=== PATIENT | male | born 1990 | race African-American/Black ===

== ENCOUNTER 2022-08-06 20:00 | Emergency (ER) | payer OTHER, SELFPAY ==
--- NOTE | ~2022-08-06 | XR_ITS ---
EXAMINATION: XR CHEST CLINICAL INFORMATION: Left-sided chest pain COMPARISON: None TECHNIQUE: 2 views of the chest were obtained. FINDINGS: The heart and pulmonary vessels appear normal. No infiltrates, effusions or lung masses are seen is some mild sclerosis seen along the left lateral seventh rib which may be secondary to an old fracture no acute osseous abnormality is seen. XR/XR chest 2V IMPRESSION: No acute intrathoracic disease.
[2022-08-06 20:03] VITALS: BP 127/94; PULSE 133; RESP 20; TEMP 37; O2SAT 96; BMI 28.3
--- NOTE | 2022-08-06 20:06 | ED_ITS ---
HPI - Chest Pain General Chief Complaint: Chest Pain <THAI York - Last Filed: 08/06/22 20:12> Stated Complaint: chest pain <THAI Yokr - Last Filed: 08/06/22 20:12> Time Seen by Provider: 08/06/22 20:58 <THAI York - Last Filed: 08/06/22 20:12> Source: patient <Deidra Mcfarlane MD - Last Filed: 08/06/22 22:48> Mode of arrival: ambulatory <Deidra Mcfarlane MD - Last Filed: 08/06/22 22:48> Limitations: no limitations <Deidra Mcfarlane MD - Last Filed: 08/06/22 22:48> History of Present Illness HPI narrative: A 32-year-old male history of alcohol use disorder walk-in today for evaluation of left-sided neck pain radiates down to the left arm and the left side of the chest pain started few months ago after falling down, no associated symptoms no nausea, no vomiting, no SOB, no feeling palpitation, no dizziness. Pain is worse with neck movement or left arm movement, pain is not exertional. Admitted to drinking alcohol today. <Deidra Mcfarlane MD - Last Filed: 08/06/22 22:48> Related Data Allergies/Adverse Reactions: Allergies Allergy/AdvReac Type Severity Reaction Status Date / Time No Known Allergies Allergy Verified 08/06/22 20:09 <THAI York - Last Filed: 08/06/22 20:12> Review of Systems Review of Systems: All other systems are reviewed and are negative Constitutional: Reports as per HPI and Reports no additional constitutional complaints Eyes: Reports as per HPI and Reports no additional eye complaints Reports system reviewed and no additional complaints, except as documented Cardiovascular: Reports as per HPI and Reports no additional cardiovascular complaints Respiratory: Reports as per HPI and Reports no additional respiratory complaints Gastrointestinal: Reports as per HPI and Reports no additional gastrointestinal complaints Genitourinary: Reports no additional female genitourinary complaints Musculoskeletal: Reports no additional musculoskeletal complaints Skin/Breast: Reports system reviewed and no additional complaints, except as docu Psychiatric: Reports no additional psychiatric complaints Endocrine: Reports no additional endocrine complaints Hematologic/Lymphatic: Reports no additional hematologic/lymphatic complaints Allergic/Immunologic: Reports no additional allergic/immunologic complaints Reports system reviewed and no additional complaints, except as documented and Reports Abnormal speech present <Deidra Mcfarlane MD - Last Filed: 08/06/22 22:48> FORMERLY [facility] Social History Social History: Social History Advance Directives: No Advance Directives Information Provided: No <THAI York - Last Filed: 08/06/22 20:12> Physical Exam Vital Signs: Vital Signs: Last Vital Signs Temp 98.6 F 08/06/22 20:03 Pulse 133 H 08/06/22 20:03 Resp 20 08/06/22 20:03 BP 127/94 H 08/06/22 20:03 Pulse Ox 96 08/06/22 20:03 O2 Del Method 08/06/22 20:03 BMI result Body Mass Index 28.3 <THAI York - Last Filed: 08/06/22 20:12> Vital Signs: Last Vital Signs Temp 98.6 F 08/06/22 20:03 Pulse 133 H 08/06/22 20:03 Resp 20 08/06/22 20:03 BP 127/94 H 08/06/22 20:03 Pulse Ox 96 08/06/22 20:03 O2 Del Method 08/06/22 20:03 BMI result Body Mass Index 28.3 Vital signs have been reviewed as appeared to be correct. Blood pressure normal. Heart rate elevated. Respiration rate normal. Temperature normal. Oxygen saturation normal. <Deidra Mcfarlane MD - Last Filed: 08/06/22 22:48> Appearance: Alert. Oriented X3. No acute distress. Head: Normal external exam. Normocephalic. Atraumatic. No Frank signs noted. No raccoon eyes noted Eyes: PERRLA. EOMI. Conjunctiva and sclera normal. Eyelids normal. ENT: TM's Normal. Pharynx normal. Uvula midline. Moist mucous membranes. No trismus noted. No drooling noted. No muffled voice noted. Neck: Normal inspection. Neck supple. FROM. No adenopathy. Thyroid Normal. No meningeal signs. No neck mass noted. Increases neck pain when they turned to the right side with increased radiation to the left arm and left chest area, pain also is worsening by lifting left arm above his head. CVS: Normal heart rate and rhythm. Heart sound normal. No murmurs noted. Pulses normal throughout. Respiratory: No respiratory distress. Painless inspiration. Breath sounds normal. No wheezes/rales/rhonchi noted. Chest nontender. No accessory muscle usage noted or decreased air movement noted. Abdomen: Soft and nontender. Bowel sounds normal in all 4 quadrants. No distention noted. No organomegaly noted. No visible injury noted. Back: No CVA tenderness. Full range of motion noted. Skin: Skin warm and dry. Normal skin color. Normal skin turgor. No rashes/lesions/lacerations noted. Extremities: No lower extremity edema. Extremities exhibit normal range of motion. Extremities nontender. Neuro: Oriented X 3. Cranial nerve exam: II-XII are grossly intact No motor deficit. No sensory deficit. Reflexes normal. <Deidra Mcfarlane MD - Last Filed: 08/06/22 22:48> Course Course Course Narrative: RME - 32 yo male with no medical problems presents to the ER with 2 months of left sided chest pains, left sided shoulder pains and left sided neck pains. He reports pains started after a fall. Poor historian. Admits to ETOH use today. HR 130-140 in triage. No SOB, no leg swelling, nausea or diaphoresis. BP stable. Will get EKG, labs, CXR. <THAI York - Last Filed: 08/06/22 20:12> Reevaluation(s) Reevaluation #1: 32-year-old male came in for few months symptoms of left neck/left chest wall pain, physical exam is consistent with left cervical radiculopathy. No neural compromise on the patient's exam. Patient is tachycardia secondary to alcohol intoxication and slight dehydration improved after given IV 1 L of normal saline. <Deidra Mcfarlane MD - Last Filed: 08/06/22 22:48> Time: 21:45 <Deidra Mcfarlane MD - Last Filed: 08/06/22 22:48> Reevaluation #2: Went back to the room patient eloped before a full medical evaluation. <Deidra Mcfarlane MD - Last Filed: 08/06/22 22:48> Time: 22:47 <Deidra Mcfarlane MD - Last Filed: 08/06/22 22:48> Medications Administered Discontinued Medications Generic Name Dose Route Start Last Admin Trade Name Freq PRN Reason Stop Dose Admin Sodium Chloride 1,000 mls @ 999 mls/hr 08/06/22 21:30 08/06/22 21:56 Ns IV 08/06/22 22:30 Not Given .Q1H1M ONE <THAI York - Last Filed: 08/06/22 20:12> Medications Administered Discontinued Medications Generic Name Dose Route Start Last Admin Trade Name Freq PRN Reason Stop Dose Admin Sodium Chloride 1,000 mls @ 999 mls/hr 08/06/22 21:30 08/06/22 21:56 Ns IV 08/06/22 22:30 Not Given .Q1H1M ONE <Deidra Mcfarlane MD - Last Filed: 08/06/22 22:48> Medical Decision Making Differential Diagnosis Differential Diagnoses: The differential diagnosis associated with the presentation includes (ACS, pneumonia, pneumothorax, cervical radiculopathy, myofascial cervical pain, alcohol intoxication.) <Deidra Mcfarlane MD - Last Filed: 08/06/22 22:48> Lab Data MDM Lab Attestation statement: I reviewed the patient's lab results. <Deidra Mcfarlane MD - Last Filed: 08/06/22 22:48> Result Diagrams: 08/06/22 20:31 08/06/22 20:31 <THAI York - Last Filed: 08/06/22 20:12> Labs: Lab Results 08/06/22 08/06/22 08/06/22 Range/Units 20:31 20:31 20:31 WBC 6.6 (4.8-10.8) X10*3/uL RBC 5.50 (4.60-5.80) X10*6/uL Hgb 17.1 (14.0-18.0) g/dl Hct 51.6 (42.0-52.0) % MCV 93.8 (80.0-98.0) fL MCH 31.1 (27.0-33.0) pg MCHC 33.1 (31.0-36.0) g/dl RDW 13.2 (11.0-16.0) % Plt Count 308 (160-400) X10*3/uL MPV 8.8 L (9.4-12.4) fL Immature Gran % (Auto) 0.3 (0.0-0.4) % Neut % (Auto) 55.0 (45-73) % Lymph % (Auto) 38.2 (20-40) % [place] % (Auto) 4.2 (2-11) % Eos % (Auto) 1.5 (0-4) % Baso % (Auto) 0.8 (0-2) % Lymph # (Auto) 2.5 (1.2-4.9) X10*3/uL [place] # (Auto) 0.3 (0.1-1.2) X10*3/uL Eos # (Auto) 0.1 (0.0-0.4) X10*3/uL Baso # (Auto) 0.1 (0.0-0.2) X10*3/uL Abs Immat Gran (auto) 0.02 (0.00-0.03) X10*3/uL Absolute Neuts (auto) 3.6 (2.0-8.3) x10*3/uL Absolute Nucleated RBC 0.000 (0.0-0.012) X10*3/uL Nucleated RBC % (auto) 0.0 (0.0-0.2) /100WBC Sodium 148 H (135-145) mmol/L Potassium 3.9 (3.3-5.1) mmol/L Chloride 104 (96-108) mmol/L Carbon Dioxide 27 (22-29) mmol/L Anion Gap 21 H (12-20) BUN 7 L (9-16) mg/dL Creatinine 0.93 (0.5-1.4) mg/dL Estim Creat Clear Calc 145.4 Estimated GFR > 60 Random Glucose 129 H (60-115) mg/dL Calcium 9.6 (8.4-10.2) mg/dL Magnesium 1.7 (1.6-2.6) mg/dL Total Bilirubin 0.4 (0.0-1.0) mg/dL Direct Bilirubin < 0.2 (0.0-0.5) mg/dL AST 55 H (5-37) U/L ALT 49 H (0-40) U/L Alkaline Phosphatase 84 (39-117) U/L Troponin I High Sens 16.3 (<3.5-35.0) ng/L Total Protein 8.7 H (6.5-8.0) g/dL Albumin 5.2 H (3.5-5.0) g/dL Ethyl Alcohol mg/dL 08/06/22 08/06/22 Range/Units 20:31 21:43 WBC (4.8-10.8) X10*3/uL RBC (4.60-5.80) X10*6/uL Hgb (14.0-18.0) g/dl Hct (42.0-52.0) % MCV (80.0-98.0) fL MCH (27.0-33.0) pg MCHC (31.0-36.0) g/dl RDW (11.0-16.0) % Plt Count (160-400) X10*3/uL MPV (9.4-12.4) fL Immature Gran % (Auto) (0.0-0.4) % Neut % (Auto) (45-73) % Lymph % (Auto) (20-40) % [place] % (Auto) (2-11) % Eos % (Auto) (0-4) % Baso % (Auto) (0-2) % Lymph # (Auto) (1.2-4.9) X10*3/uL [place] # (Auto) (0.1-1.2) X10*3/uL Eos # (Auto) (0.0-0.4) X10*3/uL Baso # (Auto) (0.0-0.2) X10*3/uL Abs Immat Gran (auto) (0.00-0.03) X10*3/uL Absolute Neuts (auto) (2.0-8.3) x10*3/uL Absolute Nucleated RBC (0.0-0.012) X10*3/uL Nucleated RBC % (auto) (0.0-0.2) /100WBC Sodium (135-145) mmol/L Potassium (3.3-5.1) mmol/L Chloride (96-108) mmol/L Carbon Dioxide (22-29) mmol/L Anion Gap (12-20) BUN (9-16) mg/dL Creatinine (0.5-1.4) mg/dL Estim Creat Clear Calc Estimated GFR Random Glucose (60-115) mg/dL Calcium (8.4-10.2) mg/dL Magnesium (1.6-2.6) mg/dL Total Bilirubin (0.0-1.0) mg/dL Direct Bilirubin (0.0-0.5) mg/dL AST (5-37) U/L ALT (0-40) U/L Alkaline Phosphatase (39-117) U/L Troponin I High Sens 17.4 (<3.5-35.0) ng/L Total Protein (6.5-8.0) g/dL Albumin (3.5-5.0) g/dL Ethyl Alcohol 397 H* mg/dL <THAI York - Last Filed: 08/06/22 20:12> Lab Results 08/06/22 08/06/22 08/06/22 Range/Units 20:31 20:31 20:31 WBC 6.6 (4.8-10.8) X10*3/uL RBC 5.50 (4.60-5.80) X10*6/uL Hgb 17.1 (14.0-18.0) g/dl Hct 51.6 (42.0-52.0) % MCV 93.8 (80.0-98.0) fL MCH 31.1 (27.0-33.0) pg MCHC 33.1 (31.0-36.0) g/dl RDW 13.2 (11.0-16.0) % Plt Count 308 (160-400) X10*3/uL MPV 8.8 L (9.4-12.4) fL Immature Gran % (Auto) 0.3 (0.0-0.4) % Neut % (Auto) 55.0 (45-73) % Lymph % (Auto) 38.2 (20-40) % [place] % (Auto) 4.2 (2-11) % Eos % (Auto) 1.5 (0-4) % Baso % (Auto) 0.8 (0-2) % Lymph # (Auto) 2.5 (1.2-4.9) X10*3/uL [place] # (Auto) 0.3 (0.1-1.2) X10*3/uL Eos # (Auto) 0.1 (0.0-0.4) X10*3/uL Baso # (Auto) 0.1 (0.0-0.2) X10*3/uL Abs Immat Gran (auto) 0.02 (0.00-0.03) X10*3/uL Absolute Neuts (auto) 3.6 (2.0-8.3) x10*3/uL Absolute Nucleated RBC 0.000 (0.0-0.012) X10*3/uL Nucleated RBC % (auto) 0.0 (0.0-0.2) /100WBC Sodium 148 H (135-145) mmol/L Potassium 3.9 (3.3-5.1) mmol/L Chloride 104 (96-108) mmol/L Carbon Dioxide 27 (22-29) mmol/L Anion Gap 21 H (12-20) BUN 7 L (9-16) mg/dL Creatinine 0.93 (0.5-1.4) mg/dL Estim Creat Clear Calc 145.4 Estimated GFR > 60 Random Glucose 129 H (60-115) mg/dL Calcium 9.6 (8.4-10.2) mg/dL Magnesium 1.7 (1.6-2.6) mg/dL Total Bilirubin 0.4 (0.0-1.0) mg/dL Direct Bilirubin < 0.2 (0.0-0.5) mg/dL AST 55 H (5-37) U/L ALT 49 H (0-40) U/L Alkaline Phosphatase 84 (39-117) U/L Troponin I High Sens 16.3 (<3.5-35.0) ng/L Total Protein 8.7 H (6.5-8.0) g/dL Albumin 5.2 H (3.5-5.0) g/dL Ethyl Alcohol mg/dL 08/06/22 08/06/22 Range/Units 20:31 21:43 WBC (4.8-10.8) X10*3/uL RBC (4.60-5.80) X10*6/uL Hgb (14.0-18.0) g/dl Hct (42.0-52.0) % MCV (80.0-98.0) fL MCH (27.0-33.0) pg MCHC (31.0-36.0) g/dl RDW (11.0-16.0) % Plt Count (160-400) X10*3/uL MPV (9.4-12.4) fL Immature Gran % (Auto) (0.0-0.4) % Neut % (Auto) (45-73) % Lymph % (Auto) (20-40) % [place] % (Auto) (2-11) % Eos % (Auto) (0-4) % Baso % (Auto) (0-2) % Lymph # (Auto) (1.2-4.9) X10*3/uL [place] # (Auto) (0.1-1.2) X10*3/uL Eos # (Auto) (0.0-0.4) X10*3/uL Baso # (Auto) (0.0-0.2) X10*3/uL Abs Immat Gran (auto) (0.00-0.03) X10*3/uL Absolute Neuts (auto) (2.0-8.3) x10*3/uL Absolute Nucleated RBC (0.0-0.012) X10*3/uL Nucleated RBC % (auto) (0.0-0.2) /100WBC Sodium (135-145) mmol/L Potassium (3.3-5.1) mmol/L Chloride (96-108) mmol/L Carbon Dioxide (22-29) mmol/L Anion Gap (12-20) BUN (9-16) mg/dL Creatinine (0.5-1.4) mg/dL Estim Creat Clear Calc Estimated GFR Random Glucose (60-115) mg/dL Calcium (8.4-10.2) mg/dL Magnesium (1.6-2.6) mg/dL Total Bilirubin (0.0-1.0) mg/dL Direct Bilirubin (0.0-0.5) mg/dL AST (5-37) U/L ALT (0-40) U/L Alkaline Phosphatase (39-117) U/L Troponin I High Sens 17.4 (<3.5-35.0) ng/L Total Protein (6.5-8.0) g/dL Albumin (3.5-5.0) g/dL Ethyl Alcohol 397 H* mg/dL <Deidra Mcfarlane MD - Last Filed: 08/06/22 22:48> Independent Interpretation I performed an independent interpretation of an: EKG (Sinus tachycardia at 123 beats per minutes, left axis deviation, normal intervals, no ST-T changes.) and Plain X-Ray (Chest: No acute intrathoracic pathology.) <Deidra Mcfarlane MD - Last Filed: 08/06/22 22:48> Discharge Plan Discharge Clinical Impression: Cervical radiculopathy, Alcohol intoxication, Atypical chest pain <THAI York - Last Filed: 08/06/22 20:12> Patient Disposition: Elopement <THAI York - Last Filed: 08/06/22 20:12>
--- NOTE | 2022-08-06 20:08 | ECG_ITS ---
Test Reason : CHEST PAIN Blood Pressure : / mmHG Vent. Rate : 123 BPM Atrial Rate : 123 BPM P-R Int : 120 ms QRS Dur : 082 ms QT Int : 296 ms P-R-T Axes : -19 -24 045 degrees QTc Int : 423 ms Sinus tachycardia cannot exclude old Inferior infarct , age undetermined Abnormal ECG No previous ECGs available Referred By: Rosy Andujar Electronically Signed By:ADOLFO SEVILLA
[2022-08-06 20:39] LABS: MANUAL DIFF FLAG NO
[2022-08-06 20:40] LABS: Basophils Absolute Auto 0.1 X10*3/uL (0.0-0.2); Basophils Percent Auto 0.8 % (0-2); Eosinophils Absolute Auto 0.1 X10*3/uL (0.0-0.4); Eosinophils Percent Auto 1.5 % (0-4); Hematocrit 51.6 % (42.0-52.0); Hemoglobin 17.1 g/dl (14.0-18.0); Imm Gran Abs Auto 0.02 X10*3/uL (0.00-0.03); Imm Gran Pct Auto 0.3 % (0.0-0.4); Lymphocytes Absolute Auto 2.5 X10*3/uL (1.2-4.9); Lymphocytes Percent Auto 38.2 % (20-40); Mean Corpuscular HGB Conc 33.1 g/dl (31.0-36.0); Mean Corpuscular Hemoglobin 31.1 pg (27.0-33.0); Mean Corpuscular Volume 93.8 fL (80.0-98.0); Mean Platelet Volume 8.8 fL (9.4-12.4); Monocytes Absolute Auto 0.3 X10*3/uL (0.1-1.2); Monocytes Percent Auto 4.2 % (2-11); Neutrophils Absolute Auto 3.6 x10*3/uL (2.0-8.3); Platelet Count 308 X10*3/uL (160-400); Red Cell Distribution Width 13.2 % (11.0-16.0); White Blood Count 6.6 X10*3/uL (4.8-10.8)
[2022-08-06 20:52] LABS: Ethanol 397 mg/dL
[2022-08-06 20:58] LABS: Alanine Aminotransferase 49 U/L (0-40); Albumin Level 5.2 g/dL (3.5-5.0); Alkaline Phosphatase 84 U/L (39-117); Anion Gap 21 (12-20); Aspartate Amino Transferase 55 U/L (5-37); Bilirubin Direct < 0.2 mg/dL (0.0-0.5); Bilirubin Total 0.4 mg/dL (0.0-1.0); Blood Urea Nitrogen 7 mg/dL (9-16); Calcium 9.6 mg/dL (8.4-10.2); Carbon Dioxide 27 mmol/L (22-29); Chloride 104 mmol/L (96-108); Creatinine Clr Calc Pharmacy 145.4; Estimated Glomerular Filt Rate > 60; Glucose Random 129 mg/dL (60-115); Magnesium 1.7 mg/dL (1.6-2.6); Potassium 3.9 mmol/L (3.3-5.1); Sodium 148 mmol/L (135-145); Total Protein 8.7 g/dL (6.5-8.0)
[2022-08-06 21:02] LABS: Troponin-I High Sensitivity 16.3 ng/L (<3.5-35.0)
[2022-08-06 22:08] LABS: Troponin-I High Sensitivity 17.4 ng/L (<3.5-35.0)
--- NOTE | 2022-08-06 22:55 | PC.NURSE ---
The pt was resting in his room, alert and oriented x 3, obviously drunk but otherwise calm and cooperative. He has been ambulating throughout his room independently and with steady gait. Pt was aware that he was waiting for one blood test result (Troponin) prior to being discharged. The pt was informed that MD Valente would prefer to place an IV and give him IVFs, but the pt refused saying no way bro. I already been stuck once. that's it . Ambrosio notified, aware. Pt was noted by staff ambulating out of the department independently with steady gait - prior to being discharged (elopement). Again, his gait was very steady. pt was encouraged to remain in the department but he continued to exit the department. MD Cara aware. Pt has eloped.
== END 2022-08-06 23:05 | disposition left against medical advice (07) ==
PROVIDERS: Physician Assistant; Emergency Provider Emergency Medicine
DX: M54.12 Radiculopathy, cervical region (principal); R07.89 Other chest pain; F10.129 Alcohol abuse with intoxication, unspecified; Y90.8 Blood alcohol level of 240 mg/100 ml or more; Z79.899 Other long term (current) drug therapy
CPT/HCPCS: 36415; 71046; 80048; 80076; 82077; 83735; 84484; 85025; 93005; 99283; 99284

== ENCOUNTER 2023-04-21 21:24 | Emergency (ER) | payer OTHER, SELFPAY ==
--- NOTE | ~2023-04-21 | XR_ITS ---
EXAMINATION: XR FOOT, LEFT CLINICAL INFORMATION: Foot pain. COMPARISON: None available. TECHNIQUE: AP, lateral, and oblique views of the left foot. FINDINGS: Small displaced fracture fragment of the proximal phalanx of the fifth toe. There is an intra-articular fracture involving the medial side of the proximal phalange involving the metatarsal phalangeal joint fracture fragment measures about 4 mm and is slightly displaced. XR/XR foot LT min 3V IMPRESSION: Intra-articular fracture of the proximal phalanx of the fifth toe involving the metatarsophalangeal joint.
[2023-04-21 21:30] VITALS: BP 152/74; PULSE 129; RESP 18; TEMP 36.6; O2SAT 99; BMI 28.4
[2023-04-21 22:04] VITALS: BP 147/90; PULSE 135; O2SAT 95
[2023-04-21 22:07] VITALS: TEMP 37.1
[2023-04-21 22:33] VITALS: PULSE 136
--- NOTE | 2023-04-21 22:38 | PC.NURSE ---
pt denies injury to L. foot; reporting pain near L. pinky toe radiating up L. leg worse with movement. +csm.
--- NOTE | 2023-04-21 23:02 | ECG_ITS ---
Test Reason : PALPITATIONS Blood Pressure : / mmHG Vent. Rate : 111 BPM Atrial Rate : 111 BPM P-R Int : 218 ms QRS Dur : 080 ms QT Int : 302 ms P-R-T Axes : 000 -18 065 degrees QTc Int : 410 ms Sinus tachycardia with 1st degree A-V block Left anterior fascicular block Nonspecific ST abnormality Lateral leads Abnormal ECG When compared with ECG of 06-AUG-2022 20:14, MO interval has increased ST more depressed Lateral leads Referred By: Deidra Mcfarlane Electronically Signed By:ADE PARISH MD
--- NOTE | 2023-04-21 23:03 | ED_ITS ---
HPI - General Adult General Chief complaint: Extremity Injury, Lower Stated complaint: LT foot pain Time Seen by Provider: 04/21/23 22:38 Source: patient Mode of arrival: ambulatory Limitations: no limitations History of Present Illness HPI narrative: 32-year-old male came in for evaluation of left foot pain, declined any trauma or injury to the left foot now the pain is becoming severe and constant, patient is still able to ambulate. in the ED found to be tachycardic will consider EKG before discharge. Related Data Allergies Allergy/AdvReac Type Severity Reaction Status Date / Time No Known Allergies Allergy Verified 04/21/23 21:38 Review of Systems Review of Systems: All other systems are reviewed and are negative Constitutional: Reports as per HPI and Reports no additional constitutional complaints Eyes: Reports as per HPI and Reports no additional eye complaints Reports system reviewed and no additional complaints, except as documented Cardiovascular: Reports as per HPI and Reports no additional cardiovascular complaints Respiratory: Reports as per HPI and Reports no additional respiratory complaints Gastrointestinal: Reports as per HPI and Reports no additional gastrointestinal complaints Genitourinary: Reports no additional female genitourinary complaints Musculoskeletal: Reports no additional musculoskeletal complaints Skin/Breast: Reports system reviewed and no additional complaints, except as docu Psychiatric: Reports no additional psychiatric complaints Endocrine: Reports no additional endocrine complaints Hematologic/Lymphatic: Reports no additional hematologic/lymphatic complaints Allergic/Immunologic: Reports no additional allergic/immunologic complaints Reports system reviewed and no additional complaints, except as documented and Reports Abnormal speech present [facility] Social History Social History Alcohol intake: current Alcohol intake frequency: does not drink Smoked in Last 30 Days: Yes Use of substances other than those prescribed or required for medical reasons: No Advance Directives: No Advance Directives Information Provided: No Physical Exam ED Vital Signs: Vital Signs - 24 hr 04/21/23 21:30 04/21/23 22:04 04/21/23 22:07 Temperature 97.9 F 98.8 F Pulse Rate 129 H 135 H Pulse Rate [Left Radial] Respiratory Rate 18 Blood Pressure 152/74 H 147/90 H Pulse Oximetry 99 95 Oxygen Delivery Method Room Air Room Air 04/21/23 22:33 Temperature Pulse Rate Pulse Rate [Left Radial] 136 H Respiratory Rate Blood Pressure Pulse Oximetry Oxygen Delivery Method BMI result Body Mass Index 28.4 Vital signs have been reviewed and appear to be correct. Blood pressure elevated. Heart rate normal. Respiratory rate normal. Temperature normal. Oxygen saturation normal. Appearance: Alert. Oriented X3. No acute distress. Head: Normal external exam. Normocephalic. Atraumatic. No Frank signs noted. No raccoon eyes noted Eyes: PERRLA. EOMI. Conjunctiva and sclera normal. Eyelids normal. ENT: TM's Normal. Pharynx normal. Uvula midline. Moist mucous membranes. No trismus noted. No drooling noted. No muffled voice noted. Neck: Normal inspection. Neck supple. FROM. No adenopathy. Thyroid Normal. No meningeal signs. No neck mass noted. CVS: Normal heart rate and rhythm. Heart sound normal. No murmurs noted. Pulses normal throughout. Respiratory: No respiratory distress. Painless inspiration. Breath sounds normal . No wheezes/rales/rhonchi noted. Chest nontender. No accessory muscle usage noted or decreased air movement noted. Abdomen: Soft and nontender. Bowel sounds normal in all 4 quadrants. No distention noted. No organomegaly noted. No visible injury noted. Back: No CVA tenderness. Full range of motion noted. Skin: Skin warm and dry. Normal skin color. Normal skin turgor. No rashes/lesions/lacerations noted. Extremities: Left foot: Neurovascularly intact, no deformity, no swelling, tenderness over the base of Fifth toe Neuro: Oriented X 3. Cranial nerve exam: II-XII are grossly intact No motor deficit. No sensory deficit. Reflexes normal. Course Reevaluation(s) Reevaluation #1: left 5th toe fracture, will provide postop Ortho shoe and follow-up with ortho. Patient's heart rate found to be 136 EKG showing normal sinus rhythm patient is adamantly refusing Any further blood workup and chest x-ray for unexplainable tachycardia patient think because he is in the hospital his heart is going fast. No CP, no SOB. Time: 23:06 Medical Decision Making Differential Diagnosis Differential Diagnoses: The differential diagnosis associated with the presentation includes ( foot fracture, chronic arthritis, dysrhythmia.) Admission/Observation Consideration of admission/observation: Escalation of care including admis fouzia/observation considered Discharge Plan Discharge Clinical Impression: Fracture of toe, Tachycardia Patient Disposition: Home, Self-Care Instructions: Foot Fracture in Adults (ED) Referrals: Will Lamb MD [Physician] -
--- NOTE | 2023-04-21 23:48 | MHC.EDTECH ---
Pt refused labs. Dr. Mcfarlane aware.
--- NOTE | 2023-04-21 23:59 | PC.NURSE ---
pt refusing blood work. Dr. Mcfarlane aware.
[2023-04-22 00:26] VITALS: PULSE 134; O2SAT 98
== END 2023-04-22 00:28 | disposition home or self-care (01) ==
PROVIDERS: Emergency Provider Emergency Medicine
DX: S92.912A Unspecified fracture of left toe(s), initial encounter for closed fracture (principal); X58.XXXA Exposure to other specified factors, initial encounter; Y93.9 Activity, unspecified; Y92.9 Unspecified place or not applicable; Y99.9 Unspecified external cause status; R00.0 Tachycardia, unspecified; M79.672 Pain in left foot
CPT/HCPCS: 73630; 93005; 99284; 99285